=== PATIENT | female | born 1955 | race Two or more races ===

== ENCOUNTER 2022-05-03 14:26 | Emergency (ER) | payer OTHER ==
[2022-05-03 14:40] VITALS: BP 157/93; PULSE 70; TEMP 97.6; BMI 29.2
[2022-05-03] MEDS ORDERED: KETOROLAC TROMETHAMINE 30 MG/1 ML VIAL IM ONE (15:46)
== END 2022-05-03 16:13 | disposition home or self-care (01) ==
LOC: JERFT 14:26
PROC: 3E0233Z Introduction of Anti-inflammatory into Muscle, Percutaneous Approach (ICD-10-PCS; principal; 2022-05-03)
DX: H66.91 Otitis media, unspecified, right ear (principal)
CPT/HCPCS: 96372; 99283-25